=== PATIENT | male | born 1945 | race Two or more races ===

== ENCOUNTER 2016-05-18 18:22 | Inpatient (IN) | payer MEDICARE, MEDICAID ==
[~2016-05-18] VITALS: Ht 165.1 cm; Wt 67.4 kg
[2016-05-18 19:01] LABS: BASO # 0.1 x10^3/uL (0.0-0.2); BASO % 1 % (0-3); EOS % 4 % (0-3); HEMATOCRIT 42.9 % (39.0-53.0); HEMOGLOBIN 14.2 g/dL (13.0-17.5); LYMPH # 2.4 x10^3/uL (1.0-4.8); LYMPH % 23 % (24-48); MEAN CORPUSCULAR HEMOGLOBIN 29 pg (25-35); MEAN CORPUSCULAR HGB CONC 33 g/dL (31-37); MEAN CORPUSCULAR VOLUME 88 fL (79-100); MONO % 8 % (0-9); NEUT % 64 % (31-73); PLATELET COUNT 317 x10^3/uL (140-400); RED BLOOD COUNT 4.88 x10^6/uL (4.30-5.70); WHITE BLOOD COUNT 10.5 x10^3/uL (4.0-11.0)
[2016-05-18 19:17] LABS: CALCIUM 9.4 mg/dL (8.5-10.1); CREATININE 1.6 mg/dL (0.7-1.3); GFR 43.1; POTASSIUM 3.8 mmol/L (3.5-5.1)
[2016-05-18 19:20] LABS: ALBUMIN 3.5 g/dL (3.4-5.0); ALBUMIN/GLOBULIN RATIO 0.8 (1.0-1.7); TOTAL BILIRUBIN 0.3 mg/dL (0.2-1.0); TOTAL PROTEIN 7.9 g/dL (6.4-8.2)
--- NOTE | 2016-05-18 19:48 | ACF ---
Admission Forms Criteria SEIZURE Clinical Indications for Admission to Inpatient Care (Place 'X' for any and all applicable criteria): Admission is indicated for seizure and ANY ONE of the following(1)(2)(3)(4)(5): [X]I. Inpatient admission required rather than observation care (Also use Seizure: Observation Care Criteria as appropriate) because of ANY ONE of the following: [ ]a) Altered mental status that is severe or persistent [ ]b) New focal neurologic deficit that is severe or persistent [ ]c) Metabolic disorder (eg, hypoglycemia, hyponatremia) that is severe or persistent [ ]d) Recurrent seizure [ ]e) Outpatient antiseizure regimen cannot be established (eg , patient cannot tolerate medication, initiation requires inpatient care) [ ]f) Need for ongoing intravenous infusion of antiseizure medication [ ]g) Cardiac arrhythmias of immediate concern [ ]h) Cerebral bleeding, hydrocephalus, or vasospasm monitoring (14) [ ]i) Increased intracranial pressure or cerebral edema monitoring (15) [X]j) Other treatment or monitoring requiring inpatient admission [ ]II. Status epilepticus [A] or repetitive seizures not controlled with emergent treatment (6)(8) [ ]III. Brain disorder (eg, tumor, edema, and hydrocephalus) that requiring monitoring or intervention available only at inpatient level of care. [ ]IV. Brain insult (eg, severe trauma, stroke, drug toxicity, or withdrawal) that requires monitoring or intervention available only at inpatient level of care (10)(11) Extended stay beyond goal length of stay may be needed for (22) [ ]a) Complications of status epilepticus [ ]b) Refractory status epilepticus [ ]c) Etiology-specific therapy for conditions such as [employer] infection, head injury,eclampsia, severe metabolic abnormalities, and brain tumor [ ]d) Residual neurologic damage, [ ]e) Initiation of significant change to anticonvulsant treatment [ ]f) Older patients (65 years or older) [ ]g) Patient requiring intubation (eg, to protect airway) The original [employer] content created by [employer] has been revised. The portions of the content which have been revised are identified through the use of italic text or in bold, and [facility] [employer] has neither reviewed nor approved the modified material. All other unmodified content is copyright [facility] [employer]. Please see references footnoted in the original [facility] edition 2016 Admission Criteria Met?: Yes BENJY TRUJILLO May 18, 2016 19:48
--- NOTE | 2016-05-18 20:02 | RAD ---
PROCEDURE CT of the head without contrast HISTORY Seizure. Possible tumor. TECHNIQUE Standard noncontrast images are obtained. Exposure: One or more of the following individualized dose reduction techniques were utilized for this exam: 1. Automated exposure control. 2. Adjustment of the mA and/or kV according to patient size. 3. Use of iterative reconstruction technique. COMPARISON None FINDINGS There is a small low-density lesion within the right kerwin. Periventricular low density is identified, a finding which typically represents chronic small vessel ischemic disease in this age group. There is no acute intracranial hemorrhage, mass effect or midline shift. No abnormal extra-axial fluid. No evidence of acute skull abnormality. Partially visualized sinuses are clear. The orbits appear unremarkable. IMPRESSION 1. Periventricular white matter low-density, a finding which is typically due to chronic small vessel ischemia in this age group. 2. Small low-density lesion within the right kerwin. This maybe of ischemic etiology, but of indeterminate age. 3. MRI could be of benefit for further evaluation. Electronically signed by: Ever Lopez MD (May 18, 2016 20:01:17)
[2016-05-18] MEDS ORDERED: ONDANSETRON PF 4 MG/2 ML VIAL. IV PRN (20:15)
--- NOTE | 2016-05-18 20:19 | PHYS DOC ---
Past Medical History Past Medical History: Hypertension Past Surgical History: No Surgical History Alcohol Use: None Drug Use: None Adult General Chief Complaint Chief Complaint: SEIZURE HPI HPI 67-year-old male who recently moved here from [place] presents with a prolonged seizure tonight. Family states the seizure lasted several minutes and he was incontinent of urine. Patient states he has hypertension and is able to take his blood pressure medication. Patient is unable to describe any preceding symptoms. States he has never been on medication for seizures in the past. He is not had a stroke he does not have cancer that he knows of. [] Review of Systems Review of Systems Constitutional: Denies fever or chills [] Eyes: Denies change in visual acuity, redness, or eye pain [] HENT: Denies nasal congestion or sore throat [] Respiratory: Denies cough or shortness of breath [] Cardiovascular: No additional information not addressed in HPI [] GI: Denies abdominal pain, nausea, vomiting, bloody stools or diarrhea [] : Denies dysuria or hematuria [] Musculoskeletal: Denies back pain or joint pain [] Integument: Denies rash or skin lesions [] Neurologic: Per history of present illness [] Endocrine: Denies polyuria or polydipsia [] Allergies Allergies Allergies Coded Allergies Type Severity Reaction Last Updated Verified No Known Drug Allergies 05/18/16 No Physical Exam Physical Exam Constitutional: Well developed, well nourished, no acute distress, non-toxic appearance. [] HENT: Normocephalic, atraumatic, bilateral external ears normal, oropharynx moist, no oral exudates, nose normal. [] Eyes: PERRLA, EOMI, conjunctiva normal, no discharge. [] Neck: Normal range of motion, no tenderness, supple, no stridor. [] Cardiovascular:Heart rate regular rhythm, no murmur [] Lungs & Thorax: Bilateral breath sounds clear to auscultation [] Abdomen: Bowel sounds normal, soft, no tenderness, no masses, no pulsatile masses. [] Skin: Warm, dry, no erythema, no rash. [] Back: No tenderness, no CVA tenderness. [] Extremities: No tenderness, no cyanosis, no clubbing, ROM intact, no edema. [] Neurologic: Postictal but no lateralizing neurologic findings [] Psychologic: Flat affect. [] Current Patient Data Vital Signs Vital Signs Date Time Temp Pulse Resp B/P Pulse Ox O2 Delivery O2 Flow Rate FiO2 05/18/16 18:37 98.7 108 20 167/77 96 Room Air 98.7 Lab Values Laboratory Tests Test 05/18/16 18:30 White Blood Count 10.5x10^3/uL (4.0-11.0) Red Blood Count 4.88x10^6/uL (4.30-5.70) Hemoglobin 14.2g/dL (13.0-17.5) Hematocrit 42.9% (39.0-53.0) Mean Corpuscular Volume 88fL (79-100) Mean Corpuscular Hemoglobin 29pg (25-35) Mean Corpuscular Hemoglobin Concent 33g/dL (31-37) Red Cell Distribution Width 16.0% (11.5-14.5) H Platelet Count 317x10^3/uL (140-400) Neutrophils (%) (Auto) 64% (31-73) Lymphocytes (%) (Auto) 23% (24-48) L Monocytes (%) (Auto) 8% (0-9) Eosinophils (%) (Auto) 4% (0-3) H Basophils (%) (Auto) 1% (0-3) Neutrophils # (Auto) 6.7x10^3uL (1.8-7.7) Lymphocytes # (Auto) 2.4x10^3/uL (1.0-4.8) Monocytes # (Auto) 0.8x10^3/uL (0.0-1.1) Eosinophils # (Auto) 0.5x10^3/uL (0.0-0.7) Basophils # (Auto) 0.1x10^3/uL (0.0-0.2) Sodium Level 142mmol/L (136-145) Potassium Level 3.8mmol/L (3.5-5.1) Chloride Level 104mmol/L (98-107) Carbon Dioxide Level 20mmol/L (21-32) L Anion Gap 18 (6-14) H Blood Urea Nitrogen 23mg/dL (8-26) Creatinine 1.6mg/dL (0.7-1.3) H Estimated GFR (Cockcroft-Gault) 43.1 BUN/Creatinine Ratio 14 (6-20) Glucose Level 138mg/dL (70-99) H Calcium Level 9.4mg/dL (8.5-10.1) Total Bilirubin 0.3mg/dL (0.2-1.0) Aspartate Amino Transferase (AST) 14U/L (15-37) L Alanine Aminotransferase (ALT) 18U/L (16-63) Alkaline Phosphatase 129U/L (46-116) H Troponin I Quantitative < 0.017ng/mL (0.000-0.055) Total Protein 7.9g/dL (6.4-8.2) Albumin 3.5g/dL (3.4-5.0) Albumin/Globulin Ratio 0.8 (1.0-1.7) L Ethyl Alcohol Level < 10mg/dL (0-10) Laboratory Tests 05/18/16 18:30 Laboratory Tests 05/18/16 18:30 EKG EKG EKG: Sinus tachycardia rate of [address]-T changes [] Radiology/Procedures Radiology/Procedures Chest x-ray: Negative exam as interpreted by me [] Impressions: PROCEDURE: HEAD WO CONTRAST PROCEDURE CT of the head without contrast HISTORY Seizure. Possible tumor. TECHNIQUE Standard noncontrast images are obtained. Exposure: One or more of the following individualized dose reduction techniques were utilized for this exam: 1. Automated exposure control. 2. Adjustment of the mA and/or kV according to patient size. 3. Use of iterative reconstruction technique. COMPARISON None FINDINGS There is a small low-density lesion within the right kerwin. Periventricular low density is identified, a finding which typically represents chronic small vessel ischemic disease in this age group. There is no acute intracranial hemorrhage, mass effect or midline shift. No abnormal extra-axial fluid. No evidence of acute skull abnormality. Partially visualized sinuses are clear. The orbits appear unremarkable. IMPRESSION 1. Periventricular white matter low-density, a finding which is typically due to chronic small vessel ischemia in this age group. 2. Small low-density lesion within the right kerwin. This maybe of ischemic etiology, but of indeterminate age. 3. MRI could be of benefit for further evaluation. Course & Med Decision Making Course & Med Decision Making Pertinent Labs and Imaging studies reviewed. (See chart for details) [ED course: Evaluation reveals 67-year-old male with a prolonged seizure this evening. He remained seizure-free through stay in the emergency department and did wake up and become more alert over time. Given the patient's age and the severity of his seizure I Bauman in the patient's best interest to be admitted to the hospital for further evaluation. I spoke with Dr. Rosario who agrees to accept patient for admission.] Dragon Disclaimer Dragon Disclaimer This electronic medical record was generated, in whole or in part, using a voice recognition dictation system. Departure Departure Impression: Primary Impression: Seizures Disposition: ADMITTED INPATIENT Admitting Physician: Paradise Hassan Condition: IMPROVED Referrals: NO PCP (PCP) APPLE NASH DO May 18, 2016 20:19
--- NOTE | 2016-05-18 21:27 | HP ---
ADMIT DATE: 05/18/2016 CHIEF COMPLAINT: Seizure. HISTORY OF PRESENT ILLNESS: The patient is a pleasant 67-year-old male who states he has been visiting [place] for a couple of weeks. He actually lives here for most of his life. He has had 2 seizures while he was in [place]. I do not think he got any medical care there for the seizures. His family states he has been a heavy drinker quit drinking a year ago. Today, he presents with another seizure. I have discussed the case with the ER physician. A CAT scan really is not showing much. We are going to go ahead and consult Neurology. PAST MEDICAL HISTORY: Previous alcoholism and previous seizures as per above. ALLERGIES: None. FAMILY HISTORY: Hypertension. SOCIAL HISTORY: He quit drinking and smoking. He does not take drugs. MEDICATIONS: Reviewed, please refer to the MRAD. REVIEW OF SYSTEMS: GENERAL: No history of weight change, weakness or fevers. SKIN: No bruising, hair changes or rashes. EYES: No blurred, double or loss of vision. NOSE AND THROAT: No history of nosebleeds, hoarseness or sore throat. HEART: No history of palpitations, chest pain or shortness of breath on exertion. LUNGS: Denies cough, hemoptysis, wheezing or shortness of breath. GASTROINTESTINAL: Denies changes in appetite, nausea, vomiting, diarrhea or constipation. GENITOURINARY: No history of frequency, urgency, hesitancy or nocturia. NEUROLOGIC: Denies history of numbness, tingling, tremor or weakness. He complains of seizures. PSYCHIATRIC: No history of panic, anxiety or depression. ENDOCRINE: No history of heat or cold intolerance, polyuria or polydipsia. EXTREMITIES: Denies muscle weakness, joint pain, pain on walking or stiffness. PHYSICAL EXAMINATION: VITAL SIGNS: Temperature afebrile, pulse 74, respirations 21, blood pressure 132/90. GENERAL: He is alert, weak. His family is present. HEART: Normal S1, S2. LUNGS: Clear. ABDOMEN: Soft, positive bowel sounds. EXTREMITIES: No edema. SKIN: He has got a lot of neurotic excoriations on his legs. ENDOCRINE: No thyromegaly. LYMPHATICS: No cervical nodes. HEMATOPOIETIC: No bruising. ASSESSMENT AND PLAN: Seizures, suspect possible alcohol related, although the patient quit drinking a year. This does not quite make sense, although maybe he is drinking and the family does not know it. I also asked him if maybe he got into some bad pork , perhaps he has cysticercosis, but at this point the CT is not showing it. Nevertheless, we are going to admit the patient and consult Neurology, cardiac monitoring, resume home medicines. He does have a rash on his left leg. We are going to consult Dr. Kathrine Arriola. DION GRAY DO DR: JASMEET/yusef JOB#: [id number] / [id number]
[2016-05-18 21:48] LABS: BILIRUBIN,URINE NEGATIVE (NEG); GLUCOSE,URINE NEGATIVE (NEG); NITRITE,URINE POSITIVE (NEG); PH,URINE 5.5; PROTEIN,URINE 30 mg/dL (NEG-TRACE); UROBILINOGEN,URINE 0.2 mg/dL (0.2 mg/dL)
[2016-05-18 21:54] LABS: BARBITURATES NEG (NEG); BENZODIAZEPINES NEG (NEG); CANNABINOIDS NEG (NEG); COCAINE NEG (NEG); METHADONE NEG (NEG); OPIATES NEG (NEG); PHENCYCLIDINE NEG (NEG)
[2016-05-18 21:57] LABS: BACTERIA,URINE MANY /HPF (0-FEW); ETHANOL, URINE NEG (NEG); SQUAMOUS EPITHELIAL CELL,UR FEW /LPF; WBC,URINE TNTC /HPF (0-4)
[2016-05-18 22:08] VITALS: BP 146/77
[2016-05-18] MEDS: IV NORMAL SALINE 1000ML BAG 1,000 ML IV SCH (22:32)
[2016-05-19 03:54] VITALS: BP 127/45
--- NOTE | 2016-05-19 06:22 | EKG ---
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
[2016-05-19 07:00] VITALS: BP 127/49
--- NOTE | 2016-05-19 08:32 | RAD ---
Portable chest, 05/18/2016: History: Seizure, shortness of breath The heart size and pulmonary vascularity are normal. No pulmonary infiltrates are seen. There is no evidence of pleural fluid. Moderate arthritic change is present at the right shoulder. IMPRESSION: No acute cardiopulmonary abnormality is detected.
[2016-05-19 11:00] VITALS: BP 139/46
--- NOTE | 2016-05-19 11:45 | PDOC2 ---
NEUROLOGY CONSULT Date of Admission Date of Admission DATE: 05/19/16 TIME: 11:40 Reason for Consult Reason for Consult: Seizure Referring Physician Referring Physician: Dr. Hassan Source Source: Chart review, Patient History of Present Illness History of Present Illness The patient is a 67-year-old right-handed male who had 2 previous seizures recently while visiting in [place] and had a 3rd seizure last night. 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 The patient feels fine now. He does not know of any inciting cause for the seizures , which have all been generalized convulsive with tongue biting, incontinence, and posted the confusion. Past Medical History Cardiovascular: HTN CENTRAL NERVOUS SYSTEM: Dementia Past Surgical History Past Surgical History: Appendectomy Family History Family History: No pertinent hx (No family history of seizures) Social History Social History , non-smoker, no alcohol, speaks only [place] Citizen Current Medications Current Medications Current Medications Ondansetron HCl 4 mg 4 mg PRN Q8HRS PRN IV NAUSEA/VOMITING; Start 05/18/16 at 20 :15; Stop 05/19/16 at 20:14 Sodium Chloride (Iv Sodium Chloride 0.9% 1000ml Bag) 1,000 ml @ 125 mls/hr Q8H IV Last administered on 05/18/16t 22:32; Start 05/18/16 at 20:30; Stop 05/19/16 at 20:29 Levetiracetam (Keppra) 500 mg BID PO ; Start 05/19/16 at 09:00 Allergies Allergies: Coded Allergies: No Known Drug Allergies (Unverified , 05/18/16) ROS Review of System Negative for fevers, chills, weight loss, shortness of breath, chest pain, indigestion, hematochezia, melena, dysuria. Full 14-point review systems is negative. Physical Exam Physical Examination PHYSICAL EXAMINATION: Vital signs: see above. General appearance is normal and in no acute distress. HEENT: Normocephalic and nontraumatic. Eyes, nose, ears, and throat are unremarkable. Neck is supple. No lymphadenopathy. No bruits are heard over the carotid artery. No crepitus. NEUROLOGICAL EXAMINATION: Mental Status Examination: Alert. Oriented to time, place, and person, speaks only [place] Citizen. Answers questions and follows commends. Pupils are equal round and reactive to light and accommodation. Extraocular movements are intact. Visual field exam shows no defect on the direct confrontation. No motor or sensory deficits on the facial exam. Uvula in the midline and the soft palate elevated symmetrically. No deviation of the tongue to any direction. Gross hearing is normal. Shoulder shrug normal. Muscle tone is normal. Muscle strength is 5. Deep tendon reflexes are 2+ all around. Plantar reflex is with flexion response bilaterally. Xcmtxk-na-hzfk test performance is accurate. Tandem walk test is accurate. Alternative movements are accurate. Romberg test is negative. Gait is normal. Sensory exam shows no deficits. No cerebellar signs are elicited. Vitals VITALS Vital Signs Date Time Temp Pulse Resp B/P Pulse Ox O2 Delivery O2 Flow Rate FiO2 05/19/16 11:00 98.0 60 18 139/46 97 Room Air 98.0 Labs Labs Laboratory Tests Test 05/18/16 18:30 05/18/16 21:28 White Blood Count 10.5x10^3/uL (4.0-11.0) Red Blood Count 4.88x10^6/uL (4.30-5.70) Hemoglobin 14.2g/dL (13.0-17.5) Hematocrit 42.9% (39.0-53.0) Mean Corpuscular Volume 88fL (79-100) Mean Corpuscular Hemoglobin 29pg (25-35) Mean Corpuscular Hemoglobin Concent 33g/dL (31-37) Red Cell Distribution Width 16.0% (11.5-14.5) Platelet Count 317x10^3/uL (140-400) Neutrophils (%) (Auto) 64% (31-73) Lymphocytes (%) (Auto) 23% (24-48) Monocytes (%) (Auto) 8% (0-9) Eosinophils (%) (Auto) 4% (0-3) Basophils (%) (Auto) 1% (0-3) Neutrophils # (Auto) 6.7x10^3uL (1.8-7.7) Lymphocytes # (Auto) 2.4x10^3/uL (1.0-4.8) Monocytes # (Auto) 0.8x10^3/uL (0.0-1.1) Eosinophils # (Auto) 0.5x10^3/uL (0.0-0.7) Basophils # (Auto) 0.1x10^3/uL (0.0-0.2) Sodium Level 142mmol/L (136-145) Potassium Level 3.8mmol/L (3.5-5.1) Chloride Level 104mmol/L (98-107) Carbon Dioxide Level 20mmol/L (21-32) Anion Gap 18 (6-14) Blood Urea Nitrogen 23mg/dL (8-26) Creatinine 1.6mg/dL (0.7-1.3) Estimated GFR (Cockcroft-Gault) 43.1 BUN/Creatinine Ratio 14 (6-20) Glucose Level 138mg/dL (70-99) Calcium Level 9.4mg/dL (8.5-10.1) Total Bilirubin 0.3mg/dL (0.2-1.0) Aspartate Amino Transf (AST/SGOT) 14U/L (15-37) Alanine Aminotransferase (ALT/SGPT) 18U/L (16-63) Alkaline Phosphatase 129U/L (46-116) Troponin I Quantitative < 0.017ng/mL (0.000-0.055) Total Protein 7.9g/dL (6.4-8.2) Albumin 3.5g/dL (3.4-5.0) Albumin/Globulin Ratio 0.8 (1.0-1.7) Ethyl Alcohol Level < 10mg/dL (0-10) Urine Collection Type Unknown Urine Color Yellow Urine Clarity Cloudy Urine pH 5.5 Urine Specific [facility] 1.015 Urine Protein 30mg/dL (NEG-TRACE) Urine Glucose (UA) Negativemg/dL (NEG) Urine Ketones (Stick) Negativemg/dL (NEG) Urine Blood Large (NEG) Urine Nitrite Positive (NEG) Urine Bilirubin Negative (NEG) Urine Urobilinogen Dipstick 0.2mg/dL (0.2 mg/dL) Urine Leukocyte Esterase Large (NEG) Urine RBC 6-10/HPF (0-2) Urine WBC Tntc/HPF (0-4) Urine Squamous Epithelial Cells Few/LPF Urine Bacteria Many/HPF (0-FEW) Urine Mucus Marked/LPF Urine Opiates Screen Neg (NEG) Urine Methadone Screen Neg (NEG) Urine Barbiturates Neg (NEG) Urine Phencyclidine Screen Neg (NEG) Urine Amphetamine/Methamphetamine Neg (NEG) Urine Benzodiazepines Screen Neg (NEG) Urine Cocaine Screen Neg (NEG) Urine Cannabinoids Screen Neg (NEG) Urine Ethyl Alcohol Neg (NEG) Laboratory Tests Test 05/18/16 18:30 05/18/16 21:28 White Blood Count 10.5x10^3/uL (4.0-11.0) Red Blood Count 4.88x10^6/uL (4.30-5.70) Hemoglobin 14.2g/dL (13.0-17.5) Hematocrit 42.9% (39.0-53.0) Mean Corpuscular Volume 88fL (79-100) Mean Corpuscular Hemoglobin 29pg (25-35) Mean Corpuscular Hemoglobin Concent 33g/dL (31-37) Red Cell Distribution Width 16.0% (11.5-14.5) Platelet Count 317x10^3/uL (140-400) Neutrophils (%) (Auto) 64% (31-73) Lymphocytes (%) (Auto) 23% (24-48) Monocytes (%) (Auto) 8% (0-9) Eosinophils (%) (Auto) 4% (0-3) Basophils (%) (Auto) 1% (0-3) Neutrophils # (Auto) 6.7x10^3uL (1.8-7.7) Lymphocytes # (Auto) 2.4x10^3/uL (1.0-4.8) Monocytes # (Auto) 0.8x10^3/uL (0.0-1.1) Eosinophils # (Auto) 0.5x10^3/uL (0.0-0.7) Basophils # (Auto) 0.1x10^3/uL (0.0-0.2) Sodium Level 142mmol/L (136-145) Potassium Level 3.8mmol/L (3.5-5.1) Chloride Level 104mmol/L (98-107) Carbon Dioxide Level 20mmol/L (21-32) Anion Gap 18 (6-14) Blood Urea Nitrogen 23mg/dL (8-26) Creatinine 1.6mg/dL (0.7-1.3) Estimated GFR (Cockcroft-Gault) 43.1 BUN/Creatinine Ratio 14 (6-20) Glucose Level 138mg/dL (70-99) Calcium Level 9.4mg/dL (8.5-10.1) Total Bilirubin 0.3mg/dL (0.2-1.0) Aspartate Amino Transf (AST/SGOT) 14U/L (15-37) Alanine Aminotransferase (ALT/SGPT) 18U/L (16-63) Alkaline Phosphatase 129U/L (46-116) Troponin I Quantitative < 0.017ng/mL (0.000-0.055) Total Protein 7.9g/dL (6.4-8.2) Albumin 3.5g/dL (3.4-5.0) Albumin/Globulin Ratio 0.8 (1.0-1.7) Ethyl Alcohol Level < 10mg/dL (0-10) Urine Collection Type Unknown Urine Color Yellow Urine Clarity Cloudy Urine pH 5.5 Urine Specific [facility] 1.015 Urine Protein 30mg/dL (NEG-TRACE) Urine Glucose (UA) Negativemg/dL (NEG) Urine Ketones (Stick) Negativemg/dL (NEG) Urine Blood Large (NEG) Urine Nitrite Positive (NEG) Urine Bilirubin Negative (NEG) Urine Urobilinogen Dipstick 0.2mg/dL (0.2 mg/dL) Urine Leukocyte Esterase Large (NEG) Urine RBC 6-10/HPF (0-2) Urine WBC Tntc/HPF (0-4) Urine Squamous Epithelial Cells Few/LPF Urine Bacteria Many/HPF (0-FEW) Urine Mucus Marked/LPF Urine Opiates Screen Neg (NEG) Urine Methadone Screen Neg (NEG) Urine Barbiturates Neg (NEG) Urine Phencyclidine Screen Neg (NEG) Urine Amphetamine/Methamphetamine Neg (NEG) Urine Benzodiazepines Screen Neg (NEG) Urine Cocaine Screen Neg (NEG) Urine Cannabinoids Screen Neg (NEG) Urine Ethyl Alcohol Neg (NEG) Images Images CT head: 1. Periventricular white matter low-density, a finding which is typically due to chronic small vessel ischemia in this age group. 2. Small low-density lesion within the right kerwin. This maybe of ischemic etiology, but of indeterminate age. 3. MRI could be of benefit for further evaluation. Assessment/Plan Assessment/Plan Impression: Epilepsy, etiology undetermined History of dementia, he is bright and alert for me today Recommendations: MRI brain Electives of the PUMA I discussed risk, benefits, alternatives, side effects, and in starting the patient on levetiracetam 500 mg BID. Note that he does have renal insufficiency so we may need to reduce the dose Okay for discharge after tests done Follow up with me in 6 weeks. Thank you for letting me help with the patient's care. JESSY TRIPATHI MD May 19, 2016 11:44
[2016-05-19] MEDS: IV NORMAL SALINE 1000ML BAG 1,000 ML IV SCH ×2 (12:30→20:26)
[2016-05-19] MEDS ORDERED: GADOBUTROL 7.5 MMOL/7.5 ML VIAL IV ONE (12:45)
[2016-05-19] MEDS: LEVETIRACETAM 500 MG TABLET. PO SCH ×2 (13:28→20:26)
--- NOTE | 2016-05-19 13:57 | RAD ---
PROCEDURE MRI brain without and with contrast. HISTORY Seizures TECHNIQUE Multiplanar, multi sequential pre and post contrast MR imaging was performed of the brain. Contrast: 6 cc Gadavist COMPARISON None FINDINGS There is some motion degradation. There is no restricted diffusion suggestive of a recent infarct or cytotoxic edema. There is no intra-axial mass effect, midline shift, extra-axial fluid collection. There is no nodular parenchymal or leptomeningeal enhancement. Ventricular size is proportional to the sulcal spaces. There is mild generalized supratentorial atrophy. There is multifocal mild to moderate T2 and FLAIR hyperintense signal abnormality of the supratentorial white matter bilaterally. There are old lacunar infarcts such as of the right temporal lobe, left caudate nucleus, and of the bifrontal deep white matter. There is large old lacunar infarct of the right kerwin, also old lacunar infarcts of the bilateral cerebellum greater on the right, also tiny focus of the right thalamus. There is mild T2 and FLAIR hyperintense signal abnormality extending to the cortical surfaces of the right frontal and parietal lobes not associated with mass effect or enhancement. There is preservation of the major arterial intracranial flow voids at the skull base. There is complete opacification of the left maxillary sinus with heterogeneous signal characteristics, possible underlying complex mucous retention cyst. There is mild to moderate right maxillary sinus mucosal thickening and patchy bilateral ethmoid air cell mucosal thickening. Cerebellar tonsils are normal location. There is preservation of marrow signal of the clivus. There is no significant abnormality of the pineal gland or pituitary gland. IMPRESSION 1. There is no evidence of recent infarct or abnormal intracranial enhancement. 2. Scattered mild to moderate T2 and FLAIR hyperintense signal abnormality of the supratentorial white matter is nonspecific although probably due to chronic microvascular ischemic disease, also old multiple old lacunar infarcts as stated. There is mild T2 and FLAIR hyperintense signal abnormality extending to the cortical surfaces of the right frontal parietal lobes probably due to sequela of previous ischemia. 3. There is mild generalized supratentorial atrophy. 4. There is complete opacification of the left maxillary sinus with heterogeneous signal characteristics, other paranasal sinus mucosal thickening as stated. Electronically signed by: Francis Guerrero MD (May 19, 2016 13:56:26)
--- NOTE | 2016-05-19 13:58 | PDOC ---
PROGRESS NOTES Chief Complaint Chief Complaint seizure, 2/2 epilepsy likely h/o dementia, looks sharp bl lower ext skin lesion with small open wounds and scars plan: fu with neuro, brain MRI and EEG done, result pending on keppra as per neuro derm consult pending dvt ppx labs t mr History of Present Illness History of Present Illness feels ok Vitals Vitals Vital Signs Date Time Temp Pulse Resp B/P Pulse Ox O2 Delivery O2 Flow Rate FiO2 05/19/16 11:00 98.0 60 18 139/46 97 Room Air 98.0 Physical Exam General: Alert, Oriented X3, Cooperative Heart: Regular rate, Normal S1, Normal S2 Lungs: Clear Abdomen: Normal bowel sounds, Soft Extremities: No clubbing, No cyanosis Labs LABS Laboratory Tests Test 05/18/16 18:30 05/18/16 21:28 White Blood Count 10.5x10^3/uL (4.0-11.0) Red Blood Count 4.88x10^6/uL (4.30-5.70) Hemoglobin 14.2g/dL (13.0-17.5) Hematocrit 42.9% (39.0-53.0) Mean Corpuscular Volume 88fL (79-100) Mean Corpuscular Hemoglobin 29pg (25-35) Mean Corpuscular Hemoglobin Concent 33g/dL (31-37) Red Cell Distribution Width 16.0% (11.5-14.5) Platelet Count 317x10^3/uL (140-400) Neutrophils (%) (Auto) 64% (31-73) Lymphocytes (%) (Auto) 23% (24-48) Monocytes (%) (Auto) 8% (0-9) Eosinophils (%) (Auto) 4% (0-3) Basophils (%) (Auto) 1% (0-3) Neutrophils # (Auto) 6.7x10^3uL (1.8-7.7) Lymphocytes # (Auto) 2.4x10^3/uL (1.0-4.8) Monocytes # (Auto) 0.8x10^3/uL (0.0-1.1) Eosinophils # (Auto) 0.5x10^3/uL (0.0-0.7) Basophils # (Auto) 0.1x10^3/uL (0.0-0.2) Sodium Level 142mmol/L (136-145) Potassium Level 3.8mmol/L (3.5-5.1) Chloride Level 104mmol/L (98-107) Carbon Dioxide Level 20mmol/L (21-32) Anion Gap 18 (6-14) Blood Urea Nitrogen 23mg/dL (8-26) Creatinine 1.6mg/dL (0.7-1.3) Estimated GFR (Cockcroft-Gault) 43.1 BUN/Creatinine Ratio 14 (6-20) Glucose Level 138mg/dL (70-99) Calcium Level 9.4mg/dL (8.5-10.1) Total Bilirubin 0.3mg/dL (0.2-1.0) Aspartate Amino Transf (AST/SGOT) 14U/L (15-37) Alanine Aminotransferase (ALT/SGPT) 18U/L (16-63) Alkaline Phosphatase 129U/L (46-116) Troponin I Quantitative < 0.017ng/mL (0.000-0.055) Total Protein 7.9g/dL (6.4-8.2) Albumin 3.5g/dL (3.4-5.0) Albumin/Globulin Ratio 0.8 (1.0-1.7) Ethyl Alcohol Level < 10mg/dL (0-10) Urine Collection Type Unknown Urine Color Yellow Urine Clarity Cloudy Urine pH 5.5 Urine Specific [place] 1.015 Urine Protein 30mg/dL (NEG-TRACE) Urine Glucose (UA) Negativemg/dL (NEG) Urine Ketones (Stick) Negativemg/dL (NEG) Urine Blood Large (NEG) Urine Nitrite Positive (NEG) Urine Bilirubin Negative (NEG) Urine Urobilinogen Dipstick 0.2mg/dL (0.2 mg/dL) Urine Leukocyte Esterase Large (NEG) Urine RBC 6-10/HPF (0-2) Urine WBC Tntc/HPF (0-4) Urine Squamous Epithelial Cells Few/LPF Urine Bacteria Many/HPF (0-FEW) Urine Mucus Marked/LPF Urine Opiates Screen Neg (NEG) Urine Methadone Screen Neg (NEG) Urine Barbiturates Neg (NEG) Urine Phencyclidine Screen Neg (NEG) Urine Amphetamine/Methamphetamine Neg (NEG) Urine Benzodiazepines Screen Neg (NEG) Urine Cocaine Screen Neg (NEG) Urine Cannabinoids Screen Neg (NEG) Urine Ethyl Alcohol Neg (NEG) Review of Systems Review of Systems no fever, chills, sob or chest pain Assessment and Plan Assessmemt and Plan Problems Medical Problems: (1) Seizures Status: Acute Problems: Comment Review of Relevant I have reviewed the following items cristobal (where applicable) has been applied. Labs Laboratory Tests Test 05/18/16 18:30 05/18/16 21:28 White Blood Count 10.5x10^3/uL (4.0-11.0) Red Blood Count 4.88x10^6/uL (4.30-5.70) Hemoglobin 14.2g/dL (13.0-17.5) Hematocrit 42.9% (39.0-53.0) Mean Corpuscular Volume 88fL (79-100) Mean Corpuscular Hemoglobin 29pg (25-35) Mean Corpuscular Hemoglobin Concent 33g/dL (31-37) Red Cell Distribution Width 16.0% (11.5-14.5) Platelet Count 317x10^3/uL (140-400) Neutrophils (%) (Auto) 64% (31-73) Lymphocytes (%) (Auto) 23% (24-48) Monocytes (%) (Auto) 8% (0-9) Eosinophils (%) (Auto) 4% (0-3) Basophils (%) (Auto) 1% (0-3) Neutrophils # (Auto) 6.7x10^3uL (1.8-7.7) Lymphocytes # (Auto) 2.4x10^3/uL (1.0-4.8) Monocytes # (Auto) 0.8x10^3/uL (0.0-1.1) Eosinophils # (Auto) 0.5x10^3/uL (0.0-0.7) Basophils # (Auto) 0.1x10^3/uL (0.0-0.2) Sodium Level 142mmol/L (136-145) Potassium Level 3.8mmol/L (3.5-5.1) Chloride Level 104mmol/L (98-107) Carbon Dioxide Level 20mmol/L (21-32) Anion Gap 18 (6-14) Blood Urea Nitrogen 23mg/dL (8-26) Creatinine 1.6mg/dL (0.7-1.3) Estimated GFR (Cockcroft-Gault) 43.1 BUN/Creatinine Ratio 14 (6-20) Glucose Level 138mg/dL (70-99) Calcium Level 9.4mg/dL (8.5-10.1) Total Bilirubin 0.3mg/dL (0.2-1.0) Aspartate Amino Transf (AST/SGOT) 14U/L (15-37) Alanine Aminotransferase (ALT/SGPT) 18U/L (16-63) Alkaline Phosphatase 129U/L (46-116) Troponin I Quantitative < 0.017ng/mL (0.000-0.055) Total Protein 7.9g/dL (6.4-8.2) Albumin 3.5g/dL (3.4-5.0) Albumin/Globulin Ratio 0.8 (1.0-1.7) Ethyl Alcohol Level < 10mg/dL (0-10) Urine Collection Type Unknown Urine Color Yellow Urine Clarity Cloudy Urine pH 5.5 Urine Specific [place] 1.015 Urine Protein 30mg/dL (NEG-TRACE) Urine Glucose (UA) Negativemg/dL (NEG) Urine Ketones (Stick) Negativemg/dL (NEG) Urine Blood Large (NEG) Urine Nitrite Positive (NEG) Urine Bilirubin Negative (NEG) Urine Urobilinogen Dipstick 0.2mg/dL (0.2 mg/dL) Urine Leukocyte Esterase Large (NEG) Urine RBC 6-10/HPF (0-2) Urine WBC Tntc/HPF (0-4) Urine Squamous Epithelial Cells Few/LPF Urine Bacteria Many/HPF (0-FEW) Urine Mucus Marked/LPF Urine Opiates Screen Neg (NEG) Urine Methadone Screen Neg (NEG) Urine Barbiturates Neg (NEG) Urine Phencyclidine Screen Neg (NEG) Urine Amphetamine/Methamphetamine Neg (NEG) Urine Benzodiazepines Screen Neg (NEG) Urine Cocaine Screen Neg (NEG) Urine Cannabinoids Screen Neg (NEG) Urine Ethyl Alcohol Neg (NEG) Laboratory Tests Test 05/18/16 18:30 05/18/16 21:28 White Blood Count 10.5x10^3/uL (4.0-11.0) Red Blood Count 4.88x10^6/uL (4.30-5.70) Hemoglobin 14.2g/dL (13.0-17.5) Hematocrit 42.9% (39.0-53.0) Mean Corpuscular Volume 88fL (79-100) Mean Corpuscular Hemoglobin 29pg (25-35) Mean Corpuscular Hemoglobin Concent 33g/dL (31-37) Red Cell Distribution Width 16.0% (11.5-14.5) Platelet Count 317x10^3/uL (140-400) Neutrophils (%) (Auto) 64% (31-73) Lymphocytes (%) (Auto) 23% (24-48) Monocytes (%) (Auto) 8% (0-9) Eosinophils (%) (Auto) 4% (0-3) Basophils (%) (Auto) 1% (0-3) Neutrophils # (Auto) 6.7x10^3uL (1.8-7.7) Lymphocytes # (Auto) 2.4x10^3/uL (1.0-4.8) Monocytes # (Auto) 0.8x10^3/uL (0.0-1.1) Eosinophils # (Auto) 0.5x10^3/uL (0.0-0.7) Basophils # (Auto) 0.1x10^3/uL (0.0-0.2) Sodium Level 142mmol/L (136-145) Potassium Level 3.8mmol/L (3.5-5.1) Chloride Level 104mmol/L (98-107) Carbon Dioxide Level 20mmol/L (21-32) Anion Gap 18 (6-14) Blood Urea Nitrogen 23mg/dL (8-26) Creatinine 1.6mg/dL (0.7-1.3) Estimated GFR (Cockcroft-Gault) 43.1 BUN/Creatinine Ratio 14 (6-20) Glucose Level 138mg/dL (70-99) Calcium Level 9.4mg/dL (8.5-10.1) Total Bilirubin 0.3mg/dL (0.2-1.0) Aspartate Amino Transf (AST/SGOT) 14U/L (15-37) Alanine Aminotransferase (ALT/SGPT) 18U/L (16-63) Alkaline Phosphatase 129U/L (46-116) Troponin I Quantitative < 0.017ng/mL (0.000-0.055) Total Protein 7.9g/dL (6.4-8.2) Albumin 3.5g/dL (3.4-5.0) Albumin/Globulin Ratio 0.8 (1.0-1.7) Ethyl Alcohol Level < 10mg/dL (0-10) Urine Collection Type Unknown Urine Color Yellow Urine Clarity Cloudy Urine pH 5.5 Urine Specific [place] 1.015 Urine Protein 30mg/dL (NEG-TRACE) Urine Glucose (UA) Negativemg/dL (NEG) Urine Ketones (Stick) Negativemg/dL (NEG) Urine Blood Large (NEG) Urine Nitrite Positive (NEG) Urine Bilirubin Negative (NEG) Urine Urobilinogen Dipstick 0.2mg/dL (0.2 mg/dL) Urine Leukocyte Esterase Large (NEG) Urine RBC 6-10/HPF (0-2) Urine WBC Tntc/HPF (0-4) Urine Squamous Epithelial Cells Few/LPF Urine Bacteria Many/HPF (0-FEW) Urine Mucus Marked/LPF Urine Opiates Screen Neg (NEG) Urine Methadone Screen Neg (NEG) Urine Barbiturates Neg (NEG) Urine Phencyclidine Screen Neg (NEG) Urine Amphetamine/Methamphetamine Neg (NEG) Urine Benzodiazepines Screen Neg (NEG) Urine Cocaine Screen Neg (NEG) Urine Cannabinoids Screen Neg (NEG) Urine Ethyl Alcohol Neg (NEG) Medications Current Medications Ondansetron HCl 4 mg 4 mg PRN Q8HRS PRN IV NAUSEA/VOMITING; Start 05/18/16 at 20 :15; Stop 05/19/16 at 20:14 Sodium Chloride (Iv Sodium Chloride 0.9% 1000ml Bag) 1,000 ml @ 125 mls/hr Q8H IV Last administered on 05/18/16 22:32; Start 05/18/16 at 20:30; Stop 05/19/16 at 20:29 Levetiracetam (Keppra) 500 mg BID PO Last administered on 05/19/16 13:28; Start 05/19/16 at 09:00 Gadobutrol (Gadavist) 6 mmol 1X ONCE IV Last administered on 05/19/16 12:54; Start 05/19/16 at 12:45; Stop 05/19/16 at 12:46; Status DC Vitals/I & O Vital Sign - Last 24 Hours 05/18/16 05/18/16 05/18/16 05/18/16 18:30 18:37 19:00 19:30 Temp 98.7 98.7 Pulse 108 98 90 Resp 20 B/P 167/77 167/77 149/68 Pulse Ox 96 94 95 O2 Delivery Room Air Room Air Room Air 05/18/16 05/18/16 05/18/16 05/19/16 22:08 22:41 23:55 03:54 Temp 98.2 97.5 98.2 97.5 Pulse 85 63 Resp 16 16 B/P 146/77 127/45 Pulse Ox 97 95 O2 Delivery Room Air Room Air Room Air Room Air 05/19/16 05/19/16 07:00 11:00 Temp 98.2 98.0 98.2 98.0 Pulse 71 60 Resp 18 18 B/P 127/49 139/46 Pulse Ox 96 97 O2 Delivery Room Air Room Air Intake and Output 05/18/16 05/18/16 05/19/16 15:00 23:00 07:00 Intake Total 200 ml Output Total 300 ml Balance -100 ml SALUD ANGELA MD May 19, 2016 13:58
[2016-05-19] MEDS ORDERED: LORAZEPAM 2 MG/ML VIAL. IV PRN (14:00)
[2016-05-19] MEDS ORDERED: ACETAMINOPHEN 325 MG TABLET. PO PRN (14:00)
[2016-05-19] MEDS ORDERED: ONDANSETRON PF 4 MG/2 ML VIAL. IV PRN (14:00)
[2016-05-19 15:00] VITALS: BP 131/52
[2016-05-19] MEDS ORDERED: ENOXAPARIN 40 MG/0.4 ML SYRINGE. SQ SCH (15:00)
--- NOTE | 2016-05-19 18:21 | EEG ---
DATE OF SERVICE: 05/19/2016 ATTENDING PHYSICIAN: Dr. Hassan. EEG NUMBER [id number]. OBJECTIVE: The patient is a 70-year-old male with seizures. DESCRIPTION: This is a digital study. Electrodes are placed according to the international 10-20 system. Bipolar and referential montages are available. Activation procedures typically include hyperventilation and intermittent photic stimulation. INTERPRETATION: The waking background consists of 8 Hz, 50-100 microvolt activity, symmetrically distributed over parietooccipital regions and reactive to eye opening. Hyperventilation and intermittent photic stimulation are noncontributory. Stage I sleep is achieved with normal electroencephalogram patterns. IMPRESSION: This electroencephalogram with the patient awake and asleep is within normal limits. There is no focal, paroxysmal, or epileptiform activity. Thank you for letting us help with the patient's care. JESSY TRIPATHI MD DR: CLAUDIA/yusef JOB#: [id number] / [id number]
[2016-05-19 19:15] VITALS: BP 115/49
[2016-05-19 23:35] VITALS: BP 142/43
[2016-05-20 03:35] VITALS: BP 145/46
[2016-05-20 05:12] LABS: BASO # 0.1 x10^3/uL (0.0-0.2); BASO % 1 % (0-3); EOS % 4 % (0-3); HEMATOCRIT 35.5 % (39.0-53.0); LYMPH # 1.2 x10^3/uL (1.0-4.8); LYMPH % 14 % (24-48); MEAN CORPUSCULAR HEMOGLOBIN 29 pg (25-35); MEAN CORPUSCULAR HGB CONC 34 g/dL (31-37); MEAN CORPUSCULAR VOLUME 87 fL (79-100); MONO % 9 % (0-9); NEUT % 72 % (31-73); PLATELET COUNT 247 x10^3/uL (140-400); RED BLOOD COUNT 4.08 x10^6/uL (4.30-5.70); RED CELL DISTRIBUTION WIDTH 15.4 % (11.5-14.5); WHITE BLOOD COUNT 8.6 x10^3/uL (4.0-11.0)
[2016-05-20 05:36] LABS: CALCIUM 8.5 mg/dL (8.5-10.1); CREATININE 1.1 mg/dL (0.7-1.3); GFR 65.8; POTASSIUM 3.9 mmol/L (3.5-5.1)
[2016-05-20 07:00] VITALS: BP 132/48
[2016-05-20] MEDS: LEVETIRACETAM 500 MG TABLET. PO SCH (08:30)
--- NOTE | 2016-05-20 10:24 | PDOC ---
PROGRESS NOTES Assessment Problems Medical Problems: (1) Seizures Status: Acute Epilepsy, negative workup Patient apparently kept in hospital to have dermatology look at a chronic rash Plan Okay for discharge F/U c me 6 weeks' Subjective no complaints Objective Vital Signs Date Time Temp Pulse Resp B/P Pulse Ox O2 Delivery O2 Flow Rate FiO2 05/20/16 07:00 98.0 62 20 132/48 97 Room Air 98.0 Intake and Output 05/20/16 07:00 Intake Total 1150 ml Output Total 301 ml Balance 849 ml Intake Oral 1150 ml Output Urine Total 300 ml Stool Total 1 ml # Voids 6 PHYSICAL EXAM Alert. Oriented to time, place and person. Speaks only [place]ian PERRL. EOMI. CN: no focal findings. Muscle tone: normal. Muscle strength: 5/5 DTR: 2+ Plantar reflex: flexor Gait: normal. Sensory exam: no abnormal findings. No cerebellar signs elicited. Review of Relevant I have reviewed the following items cristobal (where applicable) has been applied. Labs Laboratory Tests Test 05/18/16 18:30 05/18/16 21:28 05/20/16 04:20 White Blood Count 10.5x10^3/uL (4.0-11.0) 8.6x10^3/uL (4.0-11.0) Red Blood Count 4.88x10^6/uL (4.30-5.70) 4.08x10^6/uL (4.30-5.70) Hemoglobin 14.2g/dL (13.0-17.5) 12.0g/dL (13.0-17.5) Hematocrit 42.9% (39.0-53.0) 35.5% (39.0-53.0) Mean Corpuscular Volume 88fL (79-100) 87fL (79-100) Mean Corpuscular Hemoglobin 29pg (25-35) 29pg (25-35) Mean Corpuscular Hemoglobin Concent 33g/dL (31-37) 34g/dL (31-37) Red Cell Distribution Width 16.0% (11.5-14.5) 15.4% (11.5-14.5) Platelet Count 317x10^3/uL (140-400) 247x10^3/uL (140-400) Neutrophils (%) (Auto) 64% (31-73) 72% (31-73) Lymphocytes (%) (Auto) 23% (24-48) 14% (24-48) Monocytes (%) (Auto) 8% (0-9) 9% (0-9) Eosinophils (%) (Auto) 4% (0-3) 4% (0-3) Basophils (%) (Auto) 1% (0-3) 1% (0-3) Neutrophils # (Auto) 6.7x10^3uL (1.8-7.7) 6.2x10^3uL (1.8-7.7) Lymphocytes # (Auto) 2.4x10^3/uL (1.0-4.8) 1.2x10^3/uL (1.0-4.8) Monocytes # (Auto) 0.8x10^3/uL (0.0-1.1) 0.8x10^3/uL (0.0-1.1) Eosinophils # (Auto) 0.5x10^3/uL (0.0-0.7) 0.4x10^3/uL (0.0-0.7) Basophils # (Auto) 0.1x10^3/uL (0.0-0.2) 0.1x10^3/uL (0.0-0.2) Sodium Level 142mmol/L (136-145) 143mmol/L (136-145) Potassium Level 3.8mmol/L (3.5-5.1) 3.9mmol/L (3.5-5.1) Chloride Level 104mmol/L (98-107) 110mmol/L (98-107) Carbon Dioxide Level 20mmol/L (21-32) 25mmol/L (21-32) Anion Gap 18 (6-14) 8 (6-14) Blood Urea Nitrogen 23mg/dL (8-26) 15mg/dL (8-26) Creatinine 1.6mg/dL (0.7-1.3) 1.1mg/dL (0.7-1.3) Estimated GFR (Cockcroft-Gault) 43.1 65.8 BUN/Creatinine Ratio 14 (6-20) Glucose Level 138mg/dL (70-99) 97mg/dL (70-99) Calcium Level 9.4mg/dL (8.5-10.1) 8.5mg/dL (8.5-10.1) Total Bilirubin 0.3mg/dL (0.2-1.0) Aspartate Amino Transf (AST/SGOT) 14U/L (15-37) Alanine Aminotransferase (ALT/SGPT) 18U/L (16-63) Alkaline Phosphatase 129U/L (46-116) Troponin I Quantitative < 0.017ng/mL (0.000-0.055) Total Protein 7.9g/dL (6.4-8.2) Albumin 3.5g/dL (3.4-5.0) Albumin/Globulin Ratio 0.8 (1.0-1.7) Ethyl Alcohol Level < 10mg/dL (0-10) Urine Collection Type Unknown Urine Color Yellow Urine Clarity Cloudy Urine pH 5.5 Urine Specific [place] 1.015 Urine Protein 30mg/dL (NEG-TRACE) Urine Glucose (UA) Negativemg/dL (NEG) Urine Ketones (Stick) Negativemg/dL (NEG) Urine Blood Large (NEG) Urine Nitrite Positive (NEG) Urine Bilirubin Negative (NEG) Urine Urobilinogen Dipstick 0.2mg/dL (0.2 mg/dL) Urine Leukocyte Esterase Large (NEG) Urine RBC 6-10/HPF (0-2) Urine WBC Tntc/HPF (0-4) Urine Squamous Epithelial Cells Few/LPF Urine Bacteria Many/HPF (0-FEW) Urine Mucus Marked/LPF Urine Opiates Screen Neg (NEG) Urine Methadone Screen Neg (NEG) Urine Barbiturates Neg (NEG) Urine Phencyclidine Screen Neg (NEG) Urine Amphetamine/Methamphetamine Neg (NEG) Urine Benzodiazepines Screen Neg (NEG) Urine Cocaine Screen Neg (NEG) Urine Cannabinoids Screen Neg (NEG) Urine Ethyl Alcohol Neg (NEG) Laboratory Tests Test 05/20/16 04:20 White Blood Count 8.6x10^3/uL (4.0-11.0) Red Blood Count 4.08x10^6/uL (4.30-5.70) Hemoglobin 12.0g/dL (13.0-17.5) Hematocrit 35.5% (39.0-53.0) Mean Corpuscular Volume 87fL (79-100) Mean Corpuscular Hemoglobin 29pg (25-35) Mean Corpuscular Hemoglobin Concent 34g/dL (31-37) Red Cell Distribution Width 15.4% (11.5-14.5) Platelet Count 247x10^3/uL (140-400) Neutrophils (%) (Auto) 72% (31-73) Lymphocytes (%) (Auto) 14% (24-48) Monocytes (%) (Auto) 9% (0-9) Eosinophils (%) (Auto) 4% (0-3) Basophils (%) (Auto) 1% (0-3) Neutrophils # (Auto) 6.2x10^3uL (1.8-7.7) Lymphocytes # (Auto) 1.2x10^3/uL (1.0-4.8) Monocytes # (Auto) 0.8x10^3/uL (0.0-1.1) Eosinophils # (Auto) 0.4x10^3/uL (0.0-0.7) Basophils # (Auto) 0.1x10^3/uL (0.0-0.2) Sodium Level 143mmol/L (136-145) Potassium Level 3.9mmol/L (3.5-5.1) Chloride Level 110mmol/L (98-107) Carbon Dioxide Level 25mmol/L (21-32) Anion Gap 8 (6-14) Blood Urea Nitrogen 15mg/dL (8-26) Creatinine 1.1mg/dL (0.7-1.3) Estimated GFR (Cockcroft-Gault) 65.8 Glucose Level 97mg/dL (70-99) Calcium Level 8.5mg/dL (8.5-10.1) Microbiology 05/18/16 Urine Culture - Preliminary, Resulted 05/18/16 Urine Culture Result 1 (RYAN) - Preliminary, Resulted Medications Current Medications Ondansetron HCl 4 mg 4 mg PRN Q8HRS PRN IV NAUSEA/VOMITING; Start 05/18/16 at 20 :15; Stop 05/19/16 at 19:02; Status DC Sodium Chloride (Iv Sodium Chloride 0.9% 1000ml Bag) 1,000 ml @ 125 mls/hr Q8H IV Last administered on 05/19/16t 20:26; Start 05/18/16 at 20:30; Stop 05/19/16 at 20:29; Status DC Levetiracetam (Keppra) 500 mg BID PO Last administered on 05/20/16 08:30; Start 05/19/16 at 09:00 Gadobutrol (Gadavist) 6 mmol 1X ONCE IV Last administered on 05/19/16 12:54; Start 05/19/16 at 12:45; Stop 05/19/16 at 12:46; Status DC Acetaminophen (Tylenol) 650 mg PRN Q6HRS PRN PO FEVER; Start 05/19/16 at 14:00 Ondansetron HCl (Zofran) 4 mg PRN Q6HRS PRN IV NAUSEA/VOMITING; Start 05/19/16 at 14:00 Enoxaparin Sodium (Lovenox 40mg Syringe) 40 mg Q24H SQ Last administered on 05/19 15:39; Start 05/19/16 at 15:00 Lorazepam (Ativan) 2 mg PRN Q4HRS PRN IV ANXIETY / AGITATION; Start 05/19/16 at 14:00 Vitals/I & O Vital Sign - Last 24 Hours 05/19/16 05/19/16 05/19/16 05/19/16 11:00 15:00 19:15 20:00 Temp 98.0 98.0 97.5 98.0 98.0 97.5 Pulse 60 60 66 Resp 18 18 20 B/P 139/46 131/52 115/49 Pulse Ox 97 97 96 O2 Delivery Room Air Room Air Room Air Room Air 05/19/16 05/20/16 05/20/16 23:35 03:35 07:00 Temp 97.7 97.4 98.0 97.7 97.4 98.0 Pulse 70 66 62 Resp 18 18 20 B/P 142/43 145/46 132/48 Pulse Ox 97 95 97 O2 Delivery Room Air Room Air Room Air Intake and Output 05/19/16 05/19/16 05/20/16 15:00 23:00 07:00 Intake Total 400 ml 750 ml Output Total 300 ml 1 ml Balance 100 ml 749 ml Images MRI and EEG negative JESSY TRIPATHI MD May 20, 2016 10:24
[2016-05-20 11:00] VITALS: BP 130/52
[2016-05-20] MEDS ORDERED: LEVE500T6 PO (11:06)
--- NOTE | 2016-05-20 12:52 | PDOC3 ---
Discharge Summary IPC Date of Admission: May 18, 2016 Discharge Date: May 20, 2016 Admitting Diagnosis seizure, 2/2 epilepsy likely h/o dementia, looks sharp bl lower ext skin lesion with small open wounds and scars plan: fu with neuro, brain MRI and EEG done, result pending on keppra as per neuro derm consult pending dvt ppx labs t mr History of Present Illness History of Present Illness feels ok Vitals Vitals Vital Signs Date Time Temp Pulse Resp B/P Pulse Ox O2 Delivery O2 Flow Rate FiO2 05/19/16 11:00 98.0 60 18 139/46 97 Room Air 98.0 Physical Exam Problems: Final Diagnosis Problems Medical Problems: (1) Seizures Status: Acute Brief Hospital Course Mr. Hdez is a 70 old M, uzbek speaking, possible heavy drinker as per admiting physician, comes for seizure, has had it for 3 times. MRI brain neg, EEG neg. as per neuro, start keppra. derm consult not done dc home with keppra, fu with derm as out pt. dc time 35min General: Alert, Oriented X3, Cooperative Heart: Regular rate, Normal S1, Normal S2 Lungs: Clear Abdomen: Normal bowel sounds, Soft Extremities: bl lOWER ext has some dry open skin lesions, likely 2/2 from scratching Problems: Disposition home CONDITION AT DISCHARGE: Improved Diet regular Scheduled Levetiracetam (Levetiracetam) 500 MG PO BID Follow Up pcp in 2 weeks SALUD ANGELA MD May 20, 2016 12:52
== END 2016-05-20 18:00 | disposition home or self-care (01) | DRG 101 ==
LOC: ER 18:22 → EDBD 20:10 → 6 SOUTH 20:10
PROVIDERS: ADMIT Internal Medicine; ATTEND Internal Medicine
DX: G40.909 Epilepsy, unspecified, not intractable, without status epilepticus (principal); N17.9 Acute kidney failure, unspecified; F03.90 Unspecified dementia, unspecified severity, without behavioral disturbance, psychotic disturbance, mood disturbance, and anxiety; I10 Essential (primary) hypertension; R32 Unspecified urinary incontinence; Z82.49 Family history of ischemic heart disease and other diseases of the circulatory system; Z87.891 Personal history of nicotine dependence
CPT/HCPCS: 36415; 70450; 70553; 71010; 80048; 80053; 81001; 84484; 85027; 87086; 93005; 95816; G0480; G0481; J1650; J7030; 99285-25; A9585